=== PATIENT | male | born 1945 | race Caucasian/White ===

== ENCOUNTER → 2018-09-18 | Outpatient (CLI) | payer OTHER ==
[~2018-09-18] MED LIST: NAMENDA5 MG PO; NEURONTIN300 MG PO; WELLBUTRIN SR100 MG PO
== END | disposition home or self-care (01) ==
LOC: NUCLEAR 13:12
DX: M81.0 Age-related osteoporosis without current pathological fracture (principal)

== ENCOUNTER → 2019-07-08 | Outpatient (CLI) | payer OTHER | END | disposition home or self-care (01) | LOC: NUCLEAR 10:00 | DX: I10 Essential (primary) hypertension (principal); I20.1 Angina pectoris with documented spasm ==

== ENCOUNTER 2019-10-06 17:34 | Inpatient (IN) | payer OTHER ==
[~2019-10-06] VITALS: Ht 160 cm; Wt 68.0 kg
[2019-10-06] MEDS ORDERED: ARICEPT5 MG (17:39)
[2019-10-06] MEDS ORDERED: CELEXA10 MG (17:39)
[2019-10-06] MEDS ORDERED: CLONAZEPAM1 M1 (17:39)
== END 2019-10-11 18:02 | disposition home or self-care (01) | DRG 194 ==
LOC: ER 17:34 → MEDJ 20:42 → SEC-K 20:42 → MEDJ 21:58
PROVIDERS: ADMIT Internal Medicine
PROC: 4A033R1 Measurement of Arterial Saturation, Peripheral, Percutaneous Approach (ICD-10-PCS; principal; 2019-10-06)
PROC: 3E0F7GC Introduction of Other Therapeutic Substance into Respiratory Tract, Via Natural or Artificial Opening (ICD-10-PCS; 2019-10-06)
PROC: BW28ZZZ Computerized Tomography (CT Scan) of Head (ICD-10-PCS; 2019-10-07)
DX: J10.1 Influenza due to other identified influenza virus with other respiratory manifestations (principal); N39.0 Urinary tract infection, site not specified; G30.9 Alzheimer's disease, unspecified; F02.80 Dementia in other diseases classified elsewhere, unspecified severity, without behavioral disturbance, psychotic disturbance, mood disturbance, and anxiety; F41.8 Other specified anxiety disorders; E78.00 Pure hypercholesterolemia, unspecified; B96.29 Other Escherichia coli [E. coli] as the cause of diseases classified elsewhere; B96.0 Mycoplasma pneumoniae [M. pneumoniae] as the cause of diseases classified elsewhere

== ENCOUNTER 2020-03-22 11:51 | Outpatient (CLI) | payer OTHER ==
[~2020-03-22 11:51] MED LIST changes: +ARICEPT5 MG; +CELEXA10 MG; +CLONAZEPAM1 M1
== END 2020-03-22 12:00 | disposition home or self-care (01) ==
LOC: TOM 11:51
PROVIDERS: ATTEND Urology
DX: R31.0 Gross hematuria (principal); R39.16 Straining to void
CPT/HCPCS: 74178; Q9965

== ENCOUNTER 2020-04-12 08:45 | Outpatient (CLI) | payer OTHER | END 2020-04-12 15:00 | disposition home or self-care (01) | LOC: LAB 08:45 | PROVIDERS: ATTEND Urology | DX: R97.20 Elevated prostate specific antigen [PSA] (principal); N30.00 Acute cystitis without hematuria ==

== ENCOUNTER 2020-05-06 07:58 | Emergency (ER) | payer OTHER ==
[~2020-05-06] VITALS: Ht 152.4 cm; Wt 68.9 kg
[2020-05-06] MEDS ORDERED: ROSUVASTATIN CA40 MG PO (08:08)
[2020-05-06] MEDS ORDERED: GABAPENTIN800 M1 PO (08:08)
[2020-05-06] MEDS ORDERED: CITALOPRAM HBR20 MG PO (08:09)
[2020-05-06] MEDS ORDERED: ULTRAM50 MG PO (11:40)
== END 2020-05-06 11:51 | disposition home or self-care (01) ==
LOC: ER 07:58
DX: S01.122A Laceration with foreign body of left eyelid and periocular area, initial encounter (principal); S60.012A Contusion of left thumb without damage to nail, initial encounter; S80.02XA Contusion of left knee, initial encounter; M54.2 Cervicalgia; G30.8 Other Alzheimer's disease; F02.80 Dementia in other diseases classified elsewhere, unspecified severity, without behavioral disturbance, psychotic disturbance, mood disturbance, and anxiety; W06.XXXA Fall from bed, initial encounter; Y93.89 Activity, other specified; Y92.013 Bedroom of single-family (private) house as the place of occurrence of the external cause; Y99.8 Other external cause status

== ENCOUNTER 2020-08-27 11:08 | Emergency (ER) | payer OTHER ==
[~2020-08-27] VITALS: Ht 167.6 cm; Wt 70.3 kg
[~2020-08-27 11:08] MED LIST changes: +CITALOPRAM HBR20 MG PO; +GABAPENTIN800 M1 PO; +ROSUVASTATIN CA40 MG PO; +ULTRAM50 MG PO
== END 2020-08-27 19:17 | disposition home or self-care (01) ==
LOC: ER 11:08
DX: J22 Unspecified acute lower respiratory infection (principal); R05 Cough; G30.8 Other Alzheimer's disease; F02.80 Dementia in other diseases classified elsewhere, unspecified severity, without behavioral disturbance, psychotic disturbance, mood disturbance, and anxiety; Z03.818 Encounter for observation for suspected exposure to other biological agents ruled out

== ENCOUNTER 2020-11-29 14:39 | Outpatient (CLI) | payer OTHER | END 2020-11-29 14:40 | disposition home or self-care (01) | LOC: NUCLEAR 14:39 | PROVIDERS: ATTEND Internal Medicine | DX: M54.14 Radiculopathy, thoracic region (principal); M51.37 Other intervertebral disc degeneration, lumbosacral region; M54.5 Low back pain; M81.0 Age-related osteoporosis without current pathological fracture ==

== ENCOUNTER → 2021-02-13 08:09 | Outpatient (CLI) | payer OTHER | END | disposition home or self-care (01) | LOC: LAB 08:09 | PROVIDERS: ATTEND Urology | DX: N30.00 Acute cystitis without hematuria (principal) ==

== ENCOUNTER 2021-03-13 11:42 | Outpatient (CLI) | payer OTHER | END 2021-03-13 11:43 | disposition home or self-care (01) | LOC: LAB 11:42 | PROVIDERS: ATTEND Urology | DX: R97.20 Elevated prostate specific antigen [PSA] (principal); R31.0 Gross hematuria; R39.16 Straining to void; R31.1 Benign essential microscopic hematuria ==

== ENCOUNTER 2021-03-21 08:19 | Outpatient (CLI) | payer OTHER | END 2021-03-21 08:45 | disposition home or self-care (01) | LOC: TOM 08:19 | PROVIDERS: ATTEND Urology | DX: Q61.01 Congenital single renal cyst (principal); R31.0 Gross hematuria; R39.16 Straining to void; C67.8 Malignant neoplasm of overlapping sites of bladder | CPT/HCPCS: 74178; Q9965 ==

== ENCOUNTER → 2021-08-03 | Outpatient (CLI) | payer OTHER | END | disposition home or self-care (01) | LOC: SONOGRAMA 09:03 | PROVIDERS: ATTEND Urology | DX: N28.89 Other specified disorders of kidney and ureter (principal); R31.1 Benign essential microscopic hematuria ==

== ENCOUNTER 2021-11-23 07:11 | Outpatient (CLI) | payer OTHER | END 2021-11-23 07:32 | disposition home or self-care (01) | LOC: TOM 07:11 | DX: R10.9 Unspecified abdominal pain (principal) ==

== ENCOUNTER 2022-02-26 07:09 | Outpatient (CLI) | payer OTHER | END 2022-02-26 07:16 | disposition home or self-care (01) | LOC: SONOGRAMA 07:09 | PROVIDERS: ATTEND Urology | DX: R31.1 Benign essential microscopic hematuria (principal) ==

== ENCOUNTER 2022-04-11 11:44 | Emergency (ER) | payer OTHER ==
[~2022-04-11] VITALS: Ht 165.1 cm; Wt 76.2 kg
== END 2022-04-11 14:13 | disposition home or self-care (01) ==
LOC: ER 11:44
DX: R33.9 Retention of urine, unspecified (principal); Z20.822 Contact with and (suspected) exposure to COVID-19

== ENCOUNTER 2022-04-11 17:30 | Outpatient (CLI) | payer OTHER | END 2022-04-11 17:43 | disposition home or self-care (01) | LOC: LAB 17:30 | PROVIDERS: ATTEND Urology | DX: N30.00 Acute cystitis without hematuria (principal) ==

== ENCOUNTER 2022-10-14 07:42 | Outpatient (CLI) | payer OTHER | END 2022-10-14 07:45 | disposition home or self-care (01) | LOC: NUCLEAR 07:42 | PROVIDERS: ATTEND Internal Medicine | DX: I73.9 Peripheral vascular disease, unspecified (principal); K21.9 Gastro-esophageal reflux disease without esophagitis; G31.1 Senile degeneration of brain, not elsewhere classified; M54.50 Low back pain, unspecified; E78.9 Disorder of lipoprotein metabolism, unspecified; G62.9 Polyneuropathy, unspecified; F41.9 Anxiety disorder, unspecified; M54.14 Radiculopathy, thoracic region; M51.37 Other intervertebral disc degeneration, lumbosacral region; C67.9 Malignant neoplasm of bladder, unspecified; I12.9 Hypertensive chronic kidney disease with stage 1 through stage 4 chronic kidney disease, or unspecified chronic kidney disease; N18.4 Chronic kidney disease, stage 4 (severe); G20 Parkinson's disease ==

== ENCOUNTER 2022-11-21 09:27 | Outpatient (CLI) | payer OTHER | END 2022-11-21 09:33 | disposition home or self-care (01) | LOC: TOM 09:27 | DX: R22.0 Localized swelling, mass and lump, head (principal); Z85.828 Personal history of other malignant neoplasm of skin | CPT/HCPCS: 70487; Q9965 ==

== ENCOUNTER → 2022-12-05 | Emergency (ER) | payer OTHER ==
[~2022-12-05] VITALS: Ht 165.1 cm; Wt 77.1 kg
[~2022-12-05] MED LIST changes: +ESOMEPRAZOLE MA40 MG; +LEVOFLOXACIN750 MG PO
== END | disposition home or self-care (01) ==
LOC: ER 12:33
DX: N39.0 Urinary tract infection, site not specified (principal); G30.8 Other Alzheimer's disease; F02.80 Dementia in other diseases classified elsewhere, unspecified severity, without behavioral disturbance, psychotic disturbance, mood disturbance, and anxiety; Z85.51 Personal history of malignant neoplasm of bladder

== ENCOUNTER 2023-02-05 09:10 | Outpatient (CLI) | payer OTHER | END 2023-02-05 09:16 | disposition home or self-care (01) | LOC: SONOGRAMA 09:10 | PROVIDERS: ATTEND Urology | DX: R31.1 Benign essential microscopic hematuria (principal) ==

== ENCOUNTER 2023-02-26 11:03 | Outpatient (CLI) | payer OTHER | END 2023-02-26 11:05 | disposition home or self-care (01) | LOC: NUCLEAR 11:03 | PROVIDERS: ATTEND Internal Medicine | DX: I82.409 Acute embolism and thrombosis of unspecified deep veins of unspecified lower extremity (principal); R06.00 Dyspnea, unspecified ==

== ENCOUNTER 2023-05-02 10:01 | Outpatient (CLI) | payer OTHER | END 2023-05-02 10:15 | disposition home or self-care (01) | LOC: TOM 10:01 | PROVIDERS: ATTEND Internal Medicine Pulmonary Disease | DX: R06.02 Shortness of breath (principal); Z87.891 Personal history of nicotine dependence ==

== ENCOUNTER 2023-06-20 10:57 | Outpatient (CLI) | payer OTHER | END 2023-06-20 11:10 | disposition home or self-care (01) | LOC: MRI 10:57 | PROVIDERS: ATTEND Psychiatry & Neurology Neurology | DX: R41.3 Other amnesia (principal) | CPT/HCPCS: 70551 ==

== ENCOUNTER 2023-08-19 08:24 | Outpatient (CLI) | payer OTHER | END 2023-08-19 08:32 | disposition home or self-care (01) | LOC: SONOGRAMA 08:24 | PROVIDERS: ATTEND Urology | DX: R31.1 Benign essential microscopic hematuria (principal) ==

== ENCOUNTER 2023-09-04 21:05 | Emergency (ER) | payer OTHER ==
[~2023-09-04] VITALS: Ht 165.1 cm; Wt 78.0 kg
[2023-09-04 23:51] LABS: HEMATOCRIT 37.2 % (39.0-48.0); HEMOGLOBIN 12.5 g/dL (13-16.00); MEAN CELL VOLUME 94.2 fL (80.0-100.00); MEAN CORPUSCULAR HEMOGLOBIN 31.5 pg (27.00-32.0); MEAN CORPUSCULAR HGB CONC 33.5 g/dl (32.0-36.0); RED BLOOD COUNT 3.95 M/uL (4.00-6.00); RED CELL DISTRIBUTION WIDTH 13.2 % (11.5-14.5)
[2023-09-04 23:58] LABS: PLATELET COUNT 122 K/uL (150-450)
[2023-09-05 00:21] LABS: ALBUMIN 3.5 gm/dL (3.4-5.0); BILIRUBIN TOTAL 0.82 mg/dL (0.3-1.2); CALCIUM 8.6 mg/dL (8.5-10.1); CREATININE SERUM 1.57 mg/dL (0.70-1.30); GFR 42.83; POTASSIUM 3.69 mEq/L (3.5-5.1); TOTAL PROTEIN 7.5 gm/dL (6.4-8.2)
== END 2023-09-05 04:57 | disposition home or self-care (01) ==
LOC: ER 21:05
PROVIDERS: General Practice
DX: S49.81XA Other specified injuries of right shoulder and upper arm, initial encounter (principal); W00.0XXA Fall on same level due to ice and snow, initial encounter; Y93.F1 Activity, caregiving, bathing; Y92.012 Bathroom of single-family (private) house as the place of occurrence of the external cause; S29.8XXA Other specified injuries of thorax, initial encounter; G30.8 Other Alzheimer's disease; F02.80 Dementia in other diseases classified elsewhere, unspecified severity, without behavioral disturbance, psychotic disturbance, mood disturbance, and anxiety
CPT/HCPCS: 36415; 71110; 72100; 73030; 96372; 99284; J1885; J3301

== ENCOUNTER 2023-09-11 12:52 | Outpatient (CLI) | payer OTHER ==
[2023-09-11 14:00] LABS: PH,URINE 5.5 (5.0-8.0); URINE APPEARANCE Cloudy; URINE BACTERIA 6985.2 uL (0.0-1933); URINE BILIRRUBIN Negative (NEGATIVE); URINE BLOOD Moderate; URINE COLOR Yellow; URINE EPITHELIAL CELLS 1.5 uL (0.0-38.8); URINE GLUCOSE Negative (NEGATIVE); URINE LEUKOCYTE Large; URINE NITRATE Negative; URINE PROTEIN 30 (NEGATIVE); URINE WBC 4875.9 uL (0.0-23.2)
== END 2023-09-11 13:54 | disposition home or self-care (01) ==
LOC: LAB 12:52
PROVIDERS: ATTEND Urology
DX: N30.00 Acute cystitis without hematuria (principal)

== ENCOUNTER 2023-09-18 10:21 | Outpatient (CLI) | payer OTHER | END 2023-09-18 10:39 | disposition home or self-care (01) | LOC: TOM 10:21 | PROVIDERS: ATTEND Internal Medicine | DX: E08.36 Diabetes mellitus due to underlying condition with diabetic cataract (principal); I73.9 Peripheral vascular disease, unspecified; N18.4 Chronic kidney disease, stage 4 (severe); C67.9 Malignant neoplasm of bladder, unspecified; K21.9 Gastro-esophageal reflux disease without esophagitis; M51.37 Other intervertebral disc degeneration, lumbosacral region; M54.14 Radiculopathy, thoracic region; G31.1 Senile degeneration of brain, not elsewhere classified; I10 Essential (primary) hypertension; G62.9 Polyneuropathy, unspecified; E55.9 Vitamin D deficiency, unspecified ==

== ENCOUNTER 2024-02-20 15:41 | Emergency (ER) | payer OTHER ==
[~2024-02-20] VITALS: Ht 165.1 cm; Wt 78.0 kg
[~2024-02-20 15:41] MED LIST changes: +ARICEP PO; +CLONAZEPA PO; +CREST PO; +GABAPEN PO; +NAMENDA1 EACH PO; +WELL PO
[2024-02-20] MEDS ORDERED: NAMENDA5 MG (15:52)
[2024-02-20] MEDS ORDERED: CRESTOR40 MG (15:52)
[2024-02-20] MEDS ORDERED: 0.9 % SODIUM CHLORIDE 1,000 ML IV SCH (19:45)
[2024-02-20] MEDS ORDERED: ACETAMINOPHEN 500 MG GEL..CAP PO ONE ×2 (19:45→20:04)
[2024-02-20 20:44] LABS: HEMATOCRIT 37.5 % (39.0-48.0); HEMOGLOBIN 12.3 g/dL (13-16.00); MEAN CELL VOLUME 90.9 fL (80.0-100.00); MEAN CORPUSCULAR HEMOGLOBIN 29.9 pg (27.00-32.0); MEAN CORPUSCULAR HGB CONC 32.9 g/dl (32.0-36.0); PLATELET COUNT 178 K/uL (150-450); RED BLOOD COUNT 4.13 M/uL (4.00-6.00); RED CELL DISTRIBUTION WIDTH 13.6 % (11.5-14.5)
[2024-02-20 21:14] LABS: ALBUMIN 3.1 gm/dL (3.4-5.0); BILIRUBIN TOTAL 0.57 mg/dL (0.3-1.2); CALCIUM 9.1 mg/dL (8.5-10.1); CREATININE SERUM 1.48 mg/dL (0.70-1.30); GFR 45.85; GLOBULINA 4.4 G/DL (2.4-3.5); POTASSIUM 4.15 mEq/L (3.5-5.1); TOTAL PROTEIN 7.5 gm/dL (6.4-8.2)
[2024-02-20 21:16] LABS: URINE APPEARANCE Clear; URINE BILIRRUBIN Negative (NEGATIVE); URINE BLOOD Negative; URINE COLOR Dark Yellow; URINE GLUCOSE Negative (NEGATIVE); URINE LEUKOCYTE Small; URINE NITRATE Negative; URINE PROTEIN 30 (NEGATIVE)
[2024-02-20 21:19] LABS: URINE EPITHELIAL CELLS 13.1 uL (0.0-38.8); URINE RBC 9.9 uL (0.0-20.8); URINE WBC 65.8 uL (0.0-23.2)
== END 2024-02-21 02:23 | disposition home or self-care (01) ==
LOC: ER 15:41
PROVIDERS: Emergency Medicine
DX: E86.0 Dehydration (principal); R53.1 Weakness; Z20.822 Contact with and (suspected) exposure to COVID-19
CPT/HCPCS: 36415; 71250; 96365; 96366; 99284; J7030

== ENCOUNTER 2024-03-01 15:38 | Inpatient (IN) | payer OTHER ==
[~2024-03-01] VITALS: Ht 152.4 cm; Wt 72.6 kg
[~2024-03-01 15:38] MED LIST changes: +CRESTOR40 MG; +NAMENDA5 MG
[2024-03-01] MEDS ORDERED: CITALOPRAM HBR20 MG (16:01)
[2024-03-01] MEDS ORDERED: RISPERIDONE0.25 MG (16:01)
[2024-03-01] MEDS ORDERED: CLONAZEPAM0.5 MG (16:02)
[2024-03-01] MEDS ORDERED: PIPERACILLIN/TAZOBACTAM SODIUM 3.375 GM VIAL IV ONE (16:30)
[2024-03-01 16:40] LABS: HEMATOCRIT 39.8 % (39.0-48.0); HEMOGLOBIN 13.1 g/dL (13-16.00); MEAN CELL VOLUME 88.8 fL (80.0-100.00); MEAN CORPUSCULAR HEMOGLOBIN 29.2 pg (27.00-32.0); MEAN CORPUSCULAR HGB CONC 32.9 g/dl (32.0-36.0); PLATELET COUNT 226 K/uL (150-450); RED BLOOD COUNT 4.48 M/uL (4.00-6.00); RED CELL DISTRIBUTION WIDTH 14.5 % (11.5-14.5)
[2024-03-01] MEDS ORDERED: LEVALBUTEROL HCL 1.25 MG/3 ML SOLUTION IH ONE (16:45)
[2024-03-01] MEDS ORDERED: IPRATROPIUM BROMIDE 0.5 MG/2.5 ML AMPUL.NEB IH ONE (16:45)
[2024-03-01] MEDS ORDERED: FUROsemide 20 MG/2 ML VIAL IV ONE (16:45)
[2024-03-01 16:56] LABS: INR 1.16; PARTIAL THROMBOPLASTIN TIME 28.9 SECONDS (22.0-34.0)
[2024-03-01 17:01] LABS: BILIRUBIN TOTAL 1.09 mg/dL (0.3-1.2); CALCIUM 9.3 mg/dL (8.5-10.1); CREATININE SERUM 1.49 mg/dL (0.70-1.30); GFR 45.49; GLOBULINA 5.3 G/DL (2.4-3.5); POTASSIUM 4.47 mEq/L (3.5-5.1); TOTAL PROTEIN 8.3 gm/dL (6.4-8.2)
[2024-03-01] MEDS ORDERED: METHYLPREDNISOLONE SOD SUCC 125 MG VIAL IV ONE (18:15)
[2024-03-01] MEDS ORDERED: 0.9 % SODIUM CHLORIDE 1,000 ML IV SCH (23:45)
[2024-03-01] MEDS ORDERED: ONDANSETRON HCL 4 MG in 0.9 % SODIUM CHLORIDE 50 ML IV PRN (23:45)
[2024-03-01] MEDS ORDERED: ACETAMINOPHEN 500 MG GEL..CAP PO PRN (23:45)
[2024-03-01 23:46] LABS: ABG PH 7.462 (7.35-7.45); ABG PO2 64.9 mmHg (80-100); BASE EXCESS 1.7 mmol/l; BICARBONATE 25.1 mmol/l (23-25); Tco2 26.2 mmol/l
[2024-03-01 23:47] LABS: allen test SATISFACTORY; o2 21 %; puncture site RADIAL RIGHT
[2024-03-01 23:48] LABS: SaO2 93.7 %
[2024-03-01] MEDS ORDERED: FAMOTIDINE/PF 20 MG in 0.9 % SODIUM CHLORIDE 8 ML IV PUSH SCH (23:50)
[2024-03-02] MEDS ORDERED: PIPERACILLIN/TAZOBACTAM SODIUM 3.375 GM in DEXTROSE 5 % IN WATER 100 ML IV SCH
[2024-03-02] MEDS ORDERED: IPRATROPIUM BROMIDE 0.5 MG/2.5 ML AMPUL.NEB IH SCH ×2 (01:00→17:00)
[2024-03-02] MEDS ORDERED: ENOXAPARIN SODIUM 40 MG/0.4 ML SYRINGE SUBCUTANEO SCH (09:00)
[2024-03-02] MEDS ORDERED: GUAIFENESIN/DEXTROMETHORPHAN 10ML BLIST.PACK PO SCH (12:00)
[2024-03-02] MEDS ORDERED: LEVALBUTEROL HCL 0.63 MG/3 ML SOLUTION IH SCH ×2 (13:00→17:00)
[2024-03-02] MEDS ORDERED: AZITHROMYCIN 500 MG in 0.9 % SODIUM CHLORIDE 250 ML IV SCH (21:00)
[2024-03-02] MEDS ORDERED: CEFTRIAXONE SODIUM 2,000 MG in 0.9 % SODIUM CHLORIDE 100 ML IV SCH (21:00)
[2024-03-03] MEDS ORDERED: METHYLPREDNISOLONE SOD SUCC 40 MG VIAL IV STA (06:55)
[2024-03-03 07:20] LABS: ALBUMIN 2.5 gm/dL (3.4-5.0); BILIRUBIN TOTAL 0.5 mg/dL (0.3-1.2); CALCIUM 8.8 mg/dL (8.5-10.1); CREATININE SERUM 1.1 mg/dL (0.70-1.30); GFR 64.57; GLOBULINA 4.7 G/DL (2.4-3.5); POTASSIUM 4.13 mEq/L (3.5-5.1); TOTAL PROTEIN 7.2 gm/dL (6.4-8.2)
[2024-03-03] MEDS ORDERED: METHYLPREDNISOLONE SOD SUCC 40 MG VIAL IV SCH (17:00)
[2024-03-04 06:12] LABS: HEMATOCRIT 39.4 % (39.0-48.0); HEMOGLOBIN 13.1 g/dL (13-16.00); MEAN CELL VOLUME 87.8 fL (80.0-100.00); MEAN CORPUSCULAR HEMOGLOBIN 29.2 pg (27.00-32.0); MEAN CORPUSCULAR HGB CONC 33.3 g/dl (32.0-36.0); PLATELET COUNT 321 K/uL (150-450); RED BLOOD COUNT 4.48 M/uL (4.00-6.00); RED CELL DISTRIBUTION WIDTH 14.5 % (11.5-14.5)
[2024-03-04 09:28] LABS: PH,URINE 6.5 (5.0-8.0); URINE APPEARANCE Clear; URINE BILIRRUBIN Negative (NEGATIVE); URINE BLOOD Negative; URINE COLOR Yellow; URINE LEUKOCYTE Trace; URINE NITRATE Negative; URINE PROTEIN 30 (NEGATIVE)
[2024-03-04 09:30] LABS: URINE BACTERIA 36.5 uL (0.0-1933); URINE EPITHELIAL CELLS 5.4 uL (0.0-38.8)
[2024-03-04 09:33] LABS: URINE GLUCOSE 100 MG/DL (NEGATIVE); URINE RBC 1.8 uL (0.0-20.8)
[2024-03-04] MEDS ORDERED: HALOPERIDOL LACTATE 5 MG/ML AMPUL IM PRN (11:30)
[2024-03-04 14:09] LABS: ABG PH 7.478 (7.35-7.45); ABG PO2 139.7 mmHg (80-100); ABG pCO2 29.2 mmHg (35-45); BASE EXCESS -1.1 mmol/l; BICARBONATE 21.1 mmol/l (23-25); SaO2 99.3 %; allen test SATISFACTORY; o2 21 %; puncture site RADIAL RIGHT
[2024-03-05] MEDS ORDERED: FAMOtidine 20 MG TABLET PO SCH (09:00)
[2024-03-05] MEDS ORDERED: MEMANTINE HCL 10 MG TABLET PO SCH (17:00)
[2024-03-05] MEDS ORDERED: GABAPENTIN 400 MG CAPSULE PO SCH (17:00)
[2024-03-05] MEDS ORDERED: RISPERIDONE 0.25 MG TABLET PO SCH (21:00)
[2024-03-05] MEDS ORDERED: CLONAZEPAM 0.5 MG TABLET PO SCH (21:00)
== END 2024-03-06 09:23 | disposition home or self-care (01) | DRG 191 ==
LOC: ER 15:38 → SEC-K 23:52 → MEDI 03-03 17:20
PROVIDERS: General Practice; Internal Medicine; ADMIT Internal Medicine; ATTEND Internal Medicine
PROC: BB24ZZZ Computerized Tomography (CT Scan) of Bilateral Lungs (ICD-10-PCS; principal; 2024-03-01)
PROC: B020ZZZ Computerized Tomography (CT Scan) of Brain (ICD-10-PCS; 2024-03-01)
PROC: 3E0F7GC Introduction of Other Therapeutic Substance into Respiratory Tract, Via Natural or Artificial Opening (ICD-10-PCS; 2024-03-02)
PROC: 4A12X4Z Monitoring of Cardiac Electrical Activity, External Approach (ICD-10-PCS; 2024-03-03)
DX: J44.1 Chronic obstructive pulmonary disease with (acute) exacerbation (principal); F03.94 Unspecified dementia, unspecified severity, with anxiety; N17.9 Acute kidney failure, unspecified; G93.1 Anoxic brain damage, not elsewhere classified; J98.11 Atelectasis; N18.9 Chronic kidney disease, unspecified; R09.02 Hypoxemia; Z87.891 Personal history of nicotine dependence